=== PATIENT | female | born 1985 | race Hispanic/Latino ===

== ENCOUNTER 2020-09-03 23:02 | Emergency (ER) | payer OTHER ==
[2020-09-03 23:30] LABS: BASOPHILS % (AUTO) 0.2 % (0.0-5.0); EOSINOPHILS % (AUTO) 0.5 % (0.0-8.0); HEMATOCRIT 39.7 % (36-48); LYMPHOCYTES % (AUTO) 41.7 % (21.0-51.0); MEAN CORPUSCULAR HEMOGLOBIN 26.7 pg (27.0-33.0); MEAN CORPUSCULAR HGB CONC 30.5 g/dL (32.0-36.0); MEAN CORPUSCULAR VOLUME 87.6 fL (79-99); NEUTROPHILS % (AUTO) 52.3 % (40.0-77.0); PLATELET COUNT (AUTO) 362 K/uL (130-400); RED BLOOD CELL COUNT(AUTO) 4.53 MIL/uL (4.00-5.50); RED CELL DISTRIBUTION WIDTH 13.8 % (11.0-15.5); WHITE BLOOD COUNT (AUTO) 16.2 K/uL (4.8-10.8)
[2020-09-03 23:33] LABS: APPEARANCE,URINE Clear (CLEAR); BILIRUBIN,URINE Negative (NEGATIVE); COLOR,URINE Yellow (YELLOW); GLUCOSE, URINE (UA) Negative (NEGATIVE); KETONES,URINE Negative (NEGATIVE); LEUKOCYTE ESTERASE ,URINE Negative (NEGATIVE); NITRATE,URINE Negative (NEGATIVE); OCCULT BLOOD,URINE Negative (NEGATIVE); PROTEIN,URINE Negative (NEGATIVE); UROBILINOGEN,URINE 0.2 mg/dL (0.2-1.0)
[2020-09-03 23:35] LABS: CREATININE 0.6 mg/dL (0.5-1.5); POTASSIUM 3.6 mmol/L (3.5-5.1)
[2020-09-03 23:46] LABS: ALBUMIN 3.7 g/dL (3.5-5.0); BILIRUBIN,TOTAL 0.3 mg/dL (0.2-1.0); TOTAL PROTEIN, SERUM 7.9 g/dL (6.0-8.3)
[2020-09-04] MEDS ORDERED: ONDANSETRON HCL 4 MG/2 ML VIAL ONE (00:06)
[2020-09-04] MEDS ORDERED: KETOROLAC TROMETHAMINE 30MG/ML ONE (00:06)
== END 2020-09-04 02:11 | disposition home or self-care (01) ==
LOC: EDH 23:02
DX: R10.9 Unspecified abdominal pain (principal)
CPT/HCPCS: 36415; 74176; 80053; 81003; 83690; 84702; 85025; 96361; 96374; 96375; 99284; J1885; J2405

== ENCOUNTER 2020-10-18 01:48 | Emergency (ER) | payer SELFPAY ==
[2020-10-18] MEDS ORDERED: METOCLOPRAMIDE 10 MG/2 ML VIAL ONE (02:23)
[2020-10-18] MEDS ORDERED: ONDANSETRON HCL 4 MG/2 ML VIAL ONE (02:23)
[2020-10-18] MEDS ORDERED: PANTOPRAZOLE 40 MG/VIAL ONE (02:25)
[2020-10-18] MEDS ORDERED: FAMOTIDINE/PF 20 MG/2 ML VIAL IV ONE (02:25)
[2020-10-18 02:26] LABS: BASOPHILS % (AUTO) 0.3 % (0.0-5.0); EOSINOPHILS % (AUTO) 0.6 % (0.0-8.0); HEMATOCRIT 38.1 % (36-48); LYMPHOCYTES % (AUTO) 40.4 % (21.0-51.0); MEAN CORPUSCULAR HEMOGLOBIN 27.3 pg (27.0-33.0); MEAN CORPUSCULAR HGB CONC 31.8 g/dL (32.0-36.0); MEAN CORPUSCULAR VOLUME 85.8 fL (79-99); NEUTROPHILS % (AUTO) 53.5 % (40.0-77.0); PLATELET COUNT (AUTO) 343 K/uL (130-400); RED BLOOD CELL COUNT(AUTO) 4.44 MIL/uL (4.00-5.50); RED CELL DISTRIBUTION WIDTH 13.6 % (11.0-15.5); WHITE BLOOD COUNT (AUTO) 11.1 K/uL (4.8-10.8)
[2020-10-18] MEDS ORDERED: SODIUM CHLORIDE 0.9% 1000ML 1,000 ML IV ONE (02:26)
[2020-10-18 02:47] LABS: CREATININE 0.6 mg/dL (0.5-1.5); POTASSIUM 3.7 mmol/L (3.5-5.1)
[2020-10-18 02:51] LABS: ALBUMIN 3.8 g/dL (3.5-5.0); BILIRUBIN,TOTAL 0.4 mg/dL (0.2-1.0); TOTAL PROTEIN, SERUM 8.3 g/dL (6.0-8.3)
[2020-10-18 04:13] LABS: APPEARANCE,URINE Clear (CLEAR); BILIRUBIN,URINE Negative (NEGATIVE); COLOR,URINE Yellow (YELLOW); GLUCOSE, URINE (UA) Negative (NEGATIVE); KETONES,URINE Negative (NEGATIVE); LEUKOCYTE ESTERASE ,URINE Negative (NEGATIVE); NITRATE,URINE Negative (NEGATIVE); OCCULT BLOOD,URINE Negative (NEGATIVE); PH,URINE 6.5 (5.0-8.0); PROTEIN,URINE Negative (NEGATIVE); UROBILINOGEN,URINE 0.2 mg/dL (0.2-1.0)
== END 2020-10-18 04:46 | disposition home or self-care (01) ==
LOC: EDH 01:48
DX: K29.00 Acute gastritis without bleeding (principal)
CPT/HCPCS: 36415; 80053; 81003; 83690; 85025; 96361; 96374; 96375; 99284; C9113; J2405; J2765; J3490; J7030

== ENCOUNTER 2024-05-22 10:58 | Emergency (ER) | payer OTHER ==
[~2024-05-22] VITALS: Ht 152.4 cm; Wt 72.6 kg
[2024-05-22 11:19] VITALS: BP 116/77; PULSE 85; RESP 17; O2SAT 97
[2024-05-22] MEDS: KETOROLAC 15MG/ML VIAL (15MG/ML) IV ONE (12:24)
[2024-05-22] MEDS ORDERED: KETO10TA2 PO (12:29)
== END 2024-05-22 12:39 | disposition home or self-care (01) ==
LOC: EDH 10:58
DX: S90.32XA Contusion of left foot, initial encounter (principal); S20.20XA Contusion of thorax, unspecified, initial encounter; E78.00 Pure hypercholesterolemia, unspecified; W18.39XA Other fall on same level, initial encounter; Y93.89 Activity, other specified; Y92.89 Other specified places as the place of occurrence of the external cause; Y99.8 Other external cause status
CPT/HCPCS: 99284; 96374; 71045; 81025; 73660; J1885

== ENCOUNTER 2024-10-27 10:14 | Emergency (ER) | payer SELFPAY ==
[~2024-10-27] VITALS: Ht 162.6 cm; Wt 63.5 kg
[~2024-10-27 10:14] MED LIST: KETO10TA2 PO
--- NOTE | 2024-10-27 11:08 | ERN ---
General Chief Complaint: Abdominal Pain Stated Complaint: ABDOMINAL PAIN Time Seen by MD: 10:18 Source: patient, family History of Present Illness Initial Comments Patient is a 39-year-old female coming in to be evaluated for abdominal pain. Patient states that the pain began two weeks ago she has been evaluated by PCP and emergency room and was diagnosed with gastritis. Patient was pending H pylori test. But patient states that she decided to come in due to increasing right upper quadrant pain. Allergies: Coded Allergies: No Known Drug Allergies (Unverified Allergy, Unknown, 05/22/24) Home Meds Active Scripts Ketorolac Tromethamine (Ketorolac Tromethamine) 10 Mg Tablet, 10 MG PO BID for 5 Days, #10 TAB Prov:SCOTT BLANC 05/22/24 Past Medical History Past Medical History: High Cholesterol Past Surgical History: None Female( History) : 0 Para: 0 Aborts: 0 ROS Dictation CONSTITUTIONAL: No chills, no fever, no weakness, no diaphoresis, no malaise. HEAD/FACE: No signs of trauma. EENT: No eye pain, no blurred vision, no tearing, no double vision, no ear pain, no ear discharge, no nose pain, no nasal congestion, no throat pain, no throat swelling, no mouth pain. RESPIRATORY: No cough, no orthopnea, no SOB, no stridor, no wheezing. CARDIOVASCULAR: No chest pain, no edema, no palpitations, no syncope. GASTROINTESTINAL/ABDOMINAL: No abdominal pain, no constipation, no diarrhea, no nausea, no vomiting. GENITOURINARY: No abnormal discharge, no dysuria, no frequent urination, no hematuria. No complaints of pain in the genitals. MUSCULOSKELETAL: No back pain, no gout, no joint pain, no joint swelling, no muscle pain, no muscle stiffness, no neck pain. INTEGUMENTARY: No change in color, no change in hair/nails, no dryness, no lesion, no lumps, no rash. NEUROLOGICAL/PSYCH: No anxiety, not depressed, no emotional problem, no headache, no numbness, no pre-existing deficit, no history of seizures, no tremors, no weakness. HEMATOLOGIC/LYMPHATIC: Not anemic, no history of blood clots, no apparent bleeding, no bruising, glands not swollen. All Systems Negative, Except as Noted. Physical Exam Physical Exam Dictation VITAL SIGNS: Reviewed. GENERAL APPEARANCE: Alert, oriented x3, no acute distress, obese. HEAD AND FACE: Non-traumatic. EYES: PERRL, pink conjunctivas, eyelid no trauma, anterior chamber clear. EARS: Pinnas intact and no signs of trauma or erythema. Ear canals clear and no discharge. TMs no erythema. NOSE: No discharge, no bleeding. OROPHARYNX: Mouth normal, teeth no caries, tongue pink. Pharynx clear, no erythema. Tonsils no exudates, no abscesses noted. Mucous membrane moist. NECK: Supple, non-tender, no thyromegaly, no masses, no JVD, no bruits. BREAST: Deferred. CHEST: No tenderness, no crepitus, no paradoxical movement, no retractions. LUNGS: Clear, well-ventilated, symmetric, no rales, no wheezing, no rhonchi, no stridor, good breath sounds bilaterally. HEART: Regular rate, regular rhythm, no murmur, no gallops. VASCULAR: No peripheral edema. ABDOMEN: Soft, positive bowel sounds, nondistended, no guarding, right upper quadrant tender, no rebound, no masses no hepatomegaly, no splenomegaly, no Campbell's sign, no hernias. RECTAL: Deferred. GENITAL: Deferred. NEUROLOGICAL: Normal speech, gross motor function intact, gross sensory function intact. MUSCULOSKELETAL: Neck nontender, full range of motion, back nontender, full range of motion. EXTREMITIES: Nontender, full range of motion. SKIN: Color pink, dry, no turgor, no rash, no lacerations, no abrasions, no contusions. LYMPHATICS: Deferred. Results Laboratory and Microbiology Lab and Micro Result Laboratory Tests Test 10/27/24 11:13 White Blood Count 11.0 K/uL (4.8-10.8) H Red Blood Count 4.71 MIL/uL (4.00-5.50) Hemoglobin 13.5 g/dL (12.0-16.0) Hematocrit 42.0 % (36-48) Mean Corpuscular Volume 89.2 fL (79-99) Mean Corpuscular Hemoglobin 28.7 pg (27.0-33.0) Mean Corpuscular Hemoglobin Concent 32.1 g/dL (32.0-36.0) Red Cell Distribution Width 13.0 % (11.0-15.5) Platelet Count 350 K/uL (130-400) Mean Platelet Volume 9.8 fL (7.5-10.5) Immature Granulocyte % (Auto) 0.3 % (0-1) Neutrophils (%) (Auto) 53.0 % (40.0-77.0) Lymphocytes (%) (Auto) 37.2 % (21.0-51.0) Monocytes (%) (Auto) 3.2 % (3.0-13.0) Eosinophils (%) (Auto) 6.0 % (0.0-8.0) Basophils (%) (Auto) 0.3 % (0.0-5.0) Neutrophils # (Auto) 5.8 K/uL (1.8-7.7) Lymphocytes # (Auto) 4.1 K/uL (1.0-4.8) Monocytes # (Auto) 0.4 K/uL (0.1-1.0) Eosinophils # (Auto) 0.66 K/uL (0.00-0.70) Basophils # (Auto) 0.03 K/uL (0.00-0.20) Absolute Immature Granulocyte (auto 0.03 K/uL (0-1) Nucleated Red Blood Cells 0.0 % (0.0-0.19) Urine Color COLORLESS (YELLOW) Urine Appearance CLEAR (CLEAR) Urine pH 6.5 (5.0-8.0) Urine Specific [place] 1.007 (1.001-1.031) Urine Protein NEGATIVE mg/dL (NEGATIVE) Urine Glucose (UA) NEGATIVE mg/dL (NEGATIVE) Urine Ketones NEGATIVE mg/dL (NEGATIVE) Urine Occult Blood NEGATIVE (NEGATIVE) Urine Nitrate NEGATIVE (NEGATIVE) Urine Bilirubin NEGATIVE mg/dL (NEGATIVE) Urine Urobilinogen 0.2 mg/dL (0.2-1.0) Urine Leukocyte Esterase NEGATIVE Daniela/uL Sodium Level 142 mmol/L (136-145) Potassium Level 3.9 mmol/L (3.5-5.1) Chloride Level 103 mmol/L (101-111) Carbon Dioxide Level 30 mmol/L (21-32) Blood Urea Nitrogen 6 mg/dL (7-18) L Creatinine 0.5 mg/dL (0.5-1.0) Glomerular Filtration Rate Calc 122 mL/min (>90) Random Glucose 100 mg/dL (70-105) Total Calcium 8.9 mg/dL (8.5-10.1) Total Bilirubin 0.3 mg/dL (0.2-1.0) Aspartate Amino Transf (AST/SGOT) 13 U/L (10-37) Alanine Aminotransferase (ALT/SGPT) 26 U/L (12-78) Alkaline Phosphatase 82 U/L (50-136) Total Creatine Kinase 51 U/L (21-232) Troponin I High Sensitivity 14 ng/L (4-50) Total Protein 8.2 g/dL (6.0-8.3) Albumin 3.8 g/dL (3.5-5.0) Lipase 30 U/L (16-77) Human Chorionic Gonadotropin, Quant 0 mIU/mL (0-5) Labs Reviewed?: Yes MDM MDM: DIFFERENTIAL DIAGNOSIS: GASTRITIS, GERD, PATIENT IS A 39-YEAR-OLD FEMALE COMING IN TO BE EVALUATED FOR RIGHT UPPER QUADRANT PAIN. PATIENT HAS HAD HAVE HISTORY OF GASTRITIS FREQUENTLY PRESENTS WITH A FLARE-UP PATIENT WAS PENDING AN H PYLORI EXAM BY. LABORATORY WORKUP AND ULTRASOUND NEGATIVE FOR ACUTE FINDINGS. PATIENT WILL BE DISCHARGED WITH A DIAGNOSIS OF GASTRITIS. ED Course Orders Procedure Category Date Status Time Cbc With Differential LAB 10/27/24 Complete 11:05 Comprehensive LAB 10/27/24 Complete Metabolic Panel 11:05 Troponin I High LAB 10/27/24 Complete Sensitivity 11:05 Hcg,Quantitative LAB 10/27/24 Complete 11:05 Urinalysis Profile LAB 10/27/24 Complete 11:05 Us Abdominal Ruq\Ltd US 10/27/24 Resulted 11:05 12 Lead Ekg Tracing- EKG 10/27/24 Logged Technical 11:05 0.9%Nacl 1000ml (Ns PHA 10/27/24 Complete 1000ml) 11:30 Ondansetron 4mg Inj PHA 10/27/24 Complete (Zofran 4mg Inj) 11:30 Pantoprazole 40mg Inj PHA 10/27/24 Complete (Protonix 40mg Inj 11:30 Creatine Kinase, Total LAB 10/27/24 Complete 11:05 Lipase LAB 10/27/24 Complete 11:05 Current Medications Medications (Trade) Dose Ordered Sig/Kishore Route PRN Reason Start Time Stop Time Status Last Admin Dose Admin Ondansetron HCl (zoFRAN 4MG INJ) 4 mg ONCE ONCE IVP 10/27/24 11:30 10/27/24 11:31 DC Pantoprazole Sodium (PROTonix 40MG INJ) 40 mg ONCE ONCE IVP 10/27/24 11:30 10/27/24 11:31 DC Sodium Chloride 1,000 ml @ 0 mls/hr ONCE ONCE IV 10/27/24 11:30 10/27/24 11:31 DC Vital Signs Date Time Temp Pulse Resp B/P (MAP) Pulse Ox O2 Delivery O2 Flow Rate FiO2 10/27/24 11:41 99.0 80 20 136/81 99 Room Air 0 DX & DISP Disposition: Discharge Departure Impression: Primary Impression: Chronic gastritis Condition: Stable Additional Instructions: FOLLOW-UP WITH PRIMARY CARE PROVIDER IN 1 TO 2 DAYS. TAKE MEDICATIONS DIRECTED HERE IN THE EMERGENCY ROOM. OKAY TO CONTINUE HOME MEDICATIONS UNLESS OTHERWISE DISCUSSED DURING YOUR VISIT IN THE EMERGENCY ROOM TODAY. RETURN TO YOUR NEAREST EMERGENCY ROOM IF SYMPTOMS WORSEN OR IF THERE IS NO IMPROVEMENT. CALL 911 IF YOU NEED IMMEDIATE ASSISTANCE. TAKE TYLENOL [id number] NEEDED AND IF NO CONTRAINDICATIONS ARE PRESENT. INCREASE ORAL HYDRATION. A WOUND CULTURE OR URINE CULTURE WAS ORDERED HERE IN THE EMERGENCY ROOM DEPARTMENT PLEASE FOLLOW-UP WITH PRIMARY CARE PROVIDER AND ADVISE THEM TO GET REPEAT PORTS FROM OUR FACILITY. IF YOU HAD ANY MAGDA WRAP/SPLINTS THAT WERE APPLIED HERE, PLEASE DO NOT REMOVE THEM UNTIL YOU SEE YOUR PRIMARY CARE OR SPECIALTY. REFERRALS: Referrals: KRISTEN DE OLIVEIRA MD (PCP) Time of Disposition: 12:07 ELSA ROSARIO MD Oct 27, 2024 11:08
[2024-10-27 11:22] LABS: BASOPHILS # (AUTO) 0.03 K/uL (0.00-0.20); BASOPHILS % (AUTO) 0.3 % (0.0-5.0); EOSINOPHILS # (AUTO) 0.66 K/uL (0.00-0.70); IMMATURE GRANULOCYTE ABSOLUTE 0.03 K/uL (0-1); LYMPHOCYTES # (AUTO) 4.1 K/uL (1.0-4.8); LYMPHOCYTES % (AUTO) 37.2 % (21.0-51.0); MEAN CORPUSCULAR HEMOGLOBIN 28.7 pg (27.0-33.0); MEAN CORPUSCULAR HGB CONC 32.1 g/dL (32.0-36.0); MEAN CORPUSCULAR VOLUME 89.2 fL (79-99); MONOCYTES # (AUTO) 0.4 K/uL (0.1-1.0); MONOCYTES % (AUTO) 3.2 % (3.0-13.0); NEUTROPHILS # (AUTO) 5.8 K/uL (1.8-7.7); PLATELET COUNT (AUTO) 350 K/uL (130-400); RED BLOOD CELL COUNT(AUTO) 4.71 MIL/uL (4.00-5.50)
[2024-10-27 11:31] LABS: CREATININE 0.5 mg/dL (0.5-1.0); POTASSIUM 3.9 mmol/L (3.5-5.1)
[2024-10-27 11:41] LABS: APPEARANCE,URINE CLEAR (CLEAR); BILIRUBIN,URINE NEGATIVE (NEGATIVE); COLOR,URINE COLORLESS (YELLOW); GLUCOSE, URINE (UA) NEGATIVE (NEGATIVE); KETONES,URINE NEGATIVE (NEGATIVE); LEUKOCYTE ESTERASE ,URINE NEGATIVE Leu/uL (NEGATIVE); NITRATE,URINE NEGATIVE (NEGATIVE); OCCULT BLOOD,URINE NEGATIVE (NEGATIVE); PH,URINE 6.5 (5.0-8.0); PROTEIN,URINE NEGATIVE (NEGATIVE); UROBILINOGEN,URINE 0.2 mg/dL (0.2-1.0)
--- NOTE | 2024-10-27 11:47 | HMCIMG ---
Exam Type: US ABDOMINAL RUQ\E\LTD Clinical Information: Adominal Pain Comparison: None Findings: The liver shows normal echogenicity and is otherwise unremarkable. The liver measures less than 16 cm in length. Doppler evaluation shows patent portal and hepatic veins. The gallbladder shows no significant abnormalities. Specifically, no calculi are seen. The gallbladder wall thickness is 2 mm. No bile duct dilatation is noted. The common bile duct measures 4 mm. The right kidney measures 11 x 5.7 cm. The right kidney is normal in size and echogenicity. No hydronephrosis or renal calculi are seen. There are no renal masses. The pancreas is suboptimally visualized. IMPRESSION: Normal right upper quadrant abdominal ultrasound.
[2024-10-27 11:48] LABS: ADD UA MICROSCOPIC NO
[2024-10-27 11:50] LABS: ALBUMIN 3.8 g/dL (3.5-5.0); BILIRUBIN,TOTAL 0.3 mg/dL (0.2-1.0); TOTAL PROTEIN, SERUM 8.2 g/dL (6.0-8.3)
[2024-10-27] MEDS: ondanSETRON 4MG INJ IVP ONE (12:57)
[2024-10-27] MEDS: 0.9%NACL 1000ML 1,000 ML IV ONE (12:57)
[2024-10-27] MEDS: PANTOPrazole 40 MG/VIAL IVP ONE (12:57)
[2024-10-27 13:55] VITALS: BP 128/85; PULSE 72; RESP 18; TEMP 98.7; O2SAT 99
--- NOTE | 2024-10-27 14:48 | EKG ---
[facility] Test Date: 2024-10-27 Test Time: 11:44:21 Pat Name: EULALIA COPELAND Department: ED Room: Gender: F Federal Judge: 07 : 1985 Requested By: ELSA ROSARIO Order Number: [id number] Reading MD: Jj Kwok Measurements Intervals [place] Rate: 75 P: 0 RI: 138 QRS: 51 QRSD: 91 T: 23 QT: 386 QTc: 432 Interpretive Statements Sinus rhythm Nonspecific STT abnormality No previous ECG available for comparison Electronically Signed On 10-27-2024 22:10:21 SKIN CARE INSTRUCTOR by Jj Kwok Please click the below link to view image of tracing.
== END 2024-10-27 13:57 | disposition home or self-care (01) ==
LOC: EDH 10:14
DX: K29.50 Unspecified chronic gastritis without bleeding (principal); R10.2 Pelvic and perineal pain; E78.00 Pure hypercholesterolemia, unspecified; Z79.899 Other long term (current) drug therapy
CPT/HCPCS: 99285; 96374; 76705; 96361; 96375; 82550; 84484; 80053; 84702; 83690; 85025; 81003; 36415; 93005; J7030; J2405; J2470

== ENCOUNTER 2025-08-01 21:46 | Emergency (ER) | payer SELFPAY ==
[~2025-08-01] VITALS: Ht 157.5 cm; Wt 71.2 kg
[2025-08-01] MEDS: DICYCLOMINE HCL 10 MG/5 ML ML PO ONE (22:23)
[2025-08-01] MEDS: MAG/ALUM/SIMETH 30 ML UDCUP PO ONE (22:23)
[2025-08-01] MEDS: LIDOCAINE HCL 2% VISCOUS 15 ML UDCUP PO ONE (22:23)
[2025-08-01 22:37] LABS: IMMATURE GRANULOCYTE ABSOLUTE 0.04 K/uL (0-1); NUCLEATED RED BLOOD CELLS 0.0 % (0.0-0.19); PLATELET COUNT (AUTO) 335 K/uL (130-400); RED BLOOD CELL COUNT(AUTO) 4.28 MIL/uL (4.00-5.50); RED CELL DISTRIBUTION WIDTH 12.8 % (11.0-15.5); WHITE BLOOD COUNT (AUTO) 15.2 K/uL (4.8-10.8)
[2025-08-01 22:40] LABS: APPEARANCE,URINE CLEAR (CLEAR); GLUCOSE, URINE (UA) NEGATIVE (NEGATIVE); LEUKOCYTE ESTERASE ,URINE NEGATIVE Leu/uL (NEGATIVE); NITRATE,URINE NEGATIVE (NEGATIVE); OCCULT BLOOD,URINE NEGATIVE (NEGATIVE)
[2025-08-01 22:44] LABS: HCG,QUALITATIVE URINE NEGATIVE (NEGATIVE)
[2025-08-01 22:45] LABS: ADD UA MICROSCOPIC NO
[2025-08-01 22:51] LABS: ASPARTATE AMINOTRANSFERASE 13.0 U/L (10-37); CREATINE KINASE, TOTAL 56.0 U/L (21-232); CREATININE 0.6 mg/dL (0.5-1.0); GLOMERULAR FILTR. RATE CALC 117.0 mL/min (>90); GLUCOSE,RANDOM 109.0 mg/dL (70-105); SODIUM SERUM 143.0 mmol/L (136-145); TOTAL PROTEIN, SERUM 7.9 g/dL (6.0-8.3); UREA NITROGEN, BLOOD 6.0 mg/dL (7-18)
--- NOTE | 2025-08-01 22:57 | HMCIMG ---
EXAM: US Abdomen, Right Upper Quadrant. CLINICAL HISTORY: Patient presents with abdominal pain. TECHNIQUE: Right upper quadrant sonography performed with image documentation. COMPARISON: Compared to prior ultrasound dated October 27, 2024. FINDINGS: LIVER: The liver measures 14.2 cm. Echotexture is within normal limits. No focal hepatic lesion. GALLBLADDER: The gallbladder wall thickness is 2 mm. No gallstones. No pericholecystic fluid. COMMON BILE DUCT: The common bile duct measures 3 mm. Within normal limits. PANCREAS: The pancreatic head and body are within normal limits. The pancreatic tail is obscured by bowel gas. RIGHT KIDNEY: The right kidney measures 10.6 x 4.3 x 4.8 cm. Normal renal cortical thickness and echogenicity. No renal calculus, mass, or hydronephrosis. IMPRESSION: Normal liver, gallbladder, and common bile duct. Normal pancreatic head and body with obscuration of the tail by bowel gas. Normal right kidney. /[place]
[2025-08-01 23:15] LABS: AMPHET/METH SCREEN,URINE NEGATIVE (NEGATIVE); BARBITURATE SCREEN, URINE NEGATIVE (NEGATIVE); CANNABINOID SCREEN,URINE NEGATIVE (NEGATIVE); COCAINE SCREEN,URINE NEGATIVE (NEGATIVE)
[2025-08-01] MEDS ORDERED: IOHEXOL 350 MG/ML 100ML INFUS..BTL IV ONE (23:22)
--- NOTE | 2025-08-01 23:36 | EKG ---
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
--- NOTE | 2025-08-02 00:17 | ERN ---
ED Note History of Present Illness Stated Complaint: C/O ABD PAIN WITH BURNING Chief Complaint: Abdominal Pain Time Seen by MD: 21:51 Time Seen by Midlevel: 21:51 Dictation: The patient is a 39-year-old female with a history of H pylori, IBS who presents to the emergency department with complaints of two weeks of epigastric, right upper quadrant abdominal pain associated with nausea nonbloody vomiting. Patient denies any fevers, denies any diarrhea or constipation. Patient reports she was seen by her doctor in diagnosed her with gastritis and started her on pantoprazole but reports no relief. Allergies: Coded Allergies: No Known Drug Allergies (Unverified Allergy, Unknown, 05/22/24) Home Meds Active Scripts Ketorolac Tromethamine (Ketorolac Tromethamine) 10 Mg Tablet, 10 MG PO BID for 5 Days, #10 TAB Prov:SCOTT BLANC 05/22/24 Past Medical History Past Medical History: Other Additional Past Medical Hx: GASTRITIS Surgical History: None : 0 Para: 0 Aborts: 0 RN Note Reviewed/Agreed w/PFSH: Yes Review of System Dictation Constitutional: Negative for fever,chills, and weight loss Eyes: Negative for injury, pain,redness, and discharge ENT: Negative for injury,pain or swelling Cardiovascular: Negative for chest pain, palpitations, and edema Respiratory: Negative for shortness of breath, cough, and wheezing, Abdomen/GI: Negative for diarrhea, and constipation positive for abdominal pain, nausea, vomiting Back: Negative for injury and pain : Negative for injury, bleeding and discharge MS/Extremity: Negative for injury and deformity Skin: Negative for rash, and discoloration Neuro: Negative for headache, weakness, numbness, tingling, and seizure Psych: Negative for suicide ideation, homicidal ideation, and hallucinations Initial Vital Sign VS Vital Signs Date Time Temp Pulse Resp B/P (MAP) Pulse Ox O2 Delivery O2 Flow Rate FiO2 08/01/25 21:48 98.1 77 20 147/81 99 Room Air 08/01/25 22:14 0 21 Physical Exam Dictation Vital Signs reviewed General Appearance: Alert, oriented x 3, no acute distress, well developed, nourished. Head and Face: non-traumatic. Eyes: PERRL, pink conjunctivas, eyelid no trauma, anterior chamber with arcus senilis. Ears: Pinnas intact and no signs of trauma or erythema ear canals clear and no discharge TM no erythema Nose: No discharge, no bleeding. Oropharynx: Mouth normal, tongue pink. pharynx clear,no erythema, tonsils no exudates, no abscesses noted, mucous membrane moist Neck: Supple, non-tender, no thyromegaly, no masses, no JVD, no bruits Breast:Deferred Chest:No tenderness, no crepitus, no paradoxical movement, no retractions Lungs:Clear, well-ventilated, symmetric, no rales, no wheezing, no rhonchi, no stridor, good breath sounds bilaterally Heart: Regular rate, regular rhythm, no murmur, no gallops Vascular: no peripheral edema, Abdomen: Soft, positive bowel sounds, nondistended, no guarding, nontender, no rebound, no masses no hepatomegaly, no splenomegaly, no Campbell's sign, no hernias. Rectal: Deferred Genital: Deferred Neurological: Normal speech, motor function intact, sensory function intact Musculoskeletal: Neck nontender, full range of motion, back nontender, full range of motion, Extremities: nontender, full range of motion Skin: Color pink, dry, no turgor, no rash, no lacerations, no abrasions, no contusions. Lymphatic: Deferred Results (Laboratory/Radiology) Laboratory/Radiology Laboratory Tests Test 08/01/25 22:24 08/01/25 22:28 Urine Color COLORLESS (YELLOW) Urine Appearance CLEAR (CLEAR) Urine pH 7.0 (5.0-8.0) Urine Specific [place] 1.002 (1.001-1.031) Urine Protein NEGATIVE mg/dL (NEGATIVE) Urine Glucose (UA) NEGATIVE mg/dL (NEGATIVE) Urine Ketones NEGATIVE mg/dL (NEGATIVE) Urine Occult Blood NEGATIVE (NEGATIVE) Urine Nitrate NEGATIVE (NEGATIVE) Urine Bilirubin NEGATIVE mg/dL (NEGATIVE) Urine Urobilinogen 0.2 mg/dL (0.2-1.0) Urine Leukocyte Esterase NEGATIVE Daniela/uL Urine HCG, Qualitative NEGATIVE (NEGATIVE) Urine Opiates Screen NEGATIVE (NEGATIVE) Urine Barbiturates Screen NEGATIVE (NEGATIVE) Urine Phencyclidine Screen NEGATIVE (NEGATIVE) Urine Amphetamines Screen NEGATIVE (NEGATIVE) Urine Benzodiazepines Screen NEGATIVE (NEGATIVE) Urine Cocaine Screen NEGATIVE (NEGATIVE) Urine Marijuana (THC) Screen NEGATIVE (NEGATIVE) White Blood Count 15.2 K/uL (4.8-10.8) H Red Blood Count 4.28 MIL/uL (4.00-5.50) Hemoglobin 12.2 g/dL (12.0-16.0) Hematocrit 38.8 % (36-48) Mean Corpuscular Volume 90.7 fL (79-99) Mean Corpuscular Hemoglobin 28.5 pg (27.0-33.0) Mean Corpuscular Hemoglobin Concent 31.4 g/dL (32.0-36.0) L Red Cell Distribution Width 12.8 % (11.0-15.5) Platelet Count 335 K/uL (130-400) Mean Platelet Volume 9.7 fL (7.5-10.5) Immature Granulocyte % (Auto) 0.3 % (0-1) Neutrophils (%) (Auto) 57.7 % (40.0-77.0) Lymphocytes (%) (Auto) 35.9 % (21.0-51.0) Monocytes (%) (Auto) 5.3 % (3.0-13.0) Eosinophils (%) (Auto) 0.6 % (0.0-8.0) Basophils (%) (Auto) 0.2 % (0.0-5.0) Neutrophils # (Auto) 8.8 K/uL (1.8-7.7) H Lymphocytes # (Auto) 5.5 K/uL (1.0-4.8) H Monocytes # (Auto) 0.8 K/uL (0.1-1.0) Eosinophils # (Auto) 0.09 K/uL (0.00-0.70) Basophils # (Auto) 0.03 K/uL (0.00-0.20) Absolute Immature Granulocyte (auto 0.04 K/uL (0-1) Nucleated Red Blood Cells 0.0 % (0.0-0.19) Sodium Level 143 mmol/L (136-145) Potassium Level 3.8 mmol/L (3.5-5.1) Chloride Level 103 mmol/L (101-111) Carbon Dioxide Level 31 mmol/L (21-32) Blood Urea Nitrogen 6 mg/dL (7-18) L Creatinine 0.6 mg/dL (0.5-1.0) Glomerular Filtration Rate Calc 117 mL/min (>90) Random Glucose 109 mg/dL (70-105) H Total Calcium 8.9 mg/dL (8.5-10.1) Total Bilirubin 0.3 mg/dL (0.2-1.0) Direct Bilirubin 0.1 mg/dL (0.0-0.3) Aspartate Amino Transf (AST/SGOT) 13 U/L (10-37) Alanine Aminotransferase (ALT/SGPT) 25 U/L (12-78) Alkaline Phosphatase 68 U/L (50-136) Total Creatine Kinase 56 U/L (21-232) Troponin I High Sensitivity 9 ng/L (4-50) Total Protein 7.9 g/dL (6.0-8.3) Albumin 4.0 g/dL (3.5-5.0) Lipase 37 U/L (16-77) SERVICE 03 REASON: Adominal Pain ORDERING PHYSICIAN: MARBIN MEZA PROCEDURE: [id number] - US ABDOMINAL RUQ\LTD EXAM: US Abdomen, Right Upper Quadrant. CLINICAL HISTORY: Patient presents with abdominal pain. TECHNIQUE: Right upper quadrant sonography performed with image documentation. COMPARISON: Compared to prior ultrasound dated October 27, 2024. FINDINGS: LIVER: The liver measures 14.2 cm. Echotexture is within normal limits. No focal hepatic lesion. GALLBLADDER: The gallbladder wall thickness is 2 mm. No gallstones. No pericholecystic fluid. COMMON BILE DUCT: The common bile duct measures 3 mm. Within normal limits. PANCREAS: The pancreatic head and body are within normal limits. The pancreatic tail is obscured by bowel gas. RIGHT KIDNEY: The right kidney measures 10.6 x 4.3 x 4.8 cm. Normal renal cortical thickness and echogenicity. No renal calculus, mass, or hydronephrosis. IMPRESSION: Normal liver, gallbladder, and common bile duct. Normal pancreatic head and body with obscuration of the tail by bowel gas. Normal right kidney. /[place] REASON: Abdominal Pain ORDERING PHYSICIAN: MARBIN MEZA PROCEDURE: ABD PEL W - CT ABDOMEN/PELVIS W/CONTRAST EXAM: CT Abdomen and Pelvis with IV contrast CLINICAL HISTORY: Abdominal pain. TECHNIQUE: Thin collimated axial CT images of the abdomen and pelvis were obtained, with sagittal and coronal reformatted images also submitted. A CT scan is done according to ALARA (As Low As Reasonably Achievable). CONTRAST: Omnipaque 350 COMPARISON: Prior CT abdomen and pelvis dated 09/03/2025. FINDINGS: Unremarkable visualized lung parenchyma. No focal abnormality within the liver, gallbladder, pancreas, spleen, adrenals, or kidneys. There is no obvious bowel wall thickening. Bowel loops are normal in caliber without evidence of obstruction or ileus. The appendix is normal. There is no abnormality within the urinary bladder. Unremarkable reproductive organs. Abdominal and pelvic vessels are patent. No lymphadenopathy. No free fluid. There is no acute osseous abnormality. IMPRESSIONS: No acute process in the abdomen or pelvis. No significant interval change. /[place] Labs Reviewed?: Yes EKG: (+) rhythm (Sinus rhythm) EKG Comment: Date:08/01/2025 Time:2211 Ventricular rate:77 CT interval:160 QRS duration:101 QT/QTc:397/451 EKG interpretation: Sinus rhythm Reviewed by ED Attending no STEMI ED Course ED Course Orders Procedure Category Date Status Time Cbc With Differential LAB 08/01/25 Complete 22:04 Troponin I High LAB 08/01/25 Complete Sensitivity 22:04 ,Urine Test LAB 08/01/25 Complete 22:04 Urinalysis Profile LAB 08/01/25 Complete 22:04 Us Abdominal Ruq\Ltd US 08/01/25 Resulted 22:04 12 Lead Ekg Tracing- EKG 08/01/25 Complete Technical 22:04 Lidocaine Hcl 2% PHA 08/01/25 Complete Viscous (Lidocaine Hcl 22:30 Mag/Alum/Simeth 30ml PHA 08/01/25 Complete (Maalox Plus 30ml) 22:30 Dicyclomine Hcl PHA 08/01/25 Complete (Bentyl 10mg/5ml 22:30 Creatine Kinase, Total LAB 08/01/25 Complete 22:04 Lipase LAB 08/01/25 Complete 22:04 Basic Metabolic Panel LAB 08/01/25 Complete 22:04 Hepatic Function Panel LAB 08/01/25 Complete 22:04 Drug Screen Urine LAB 08/01/25 Complete 22:59 0.9%Nacl 1000ml (Ns PHA 08/01/25 Complete 1000ml) 23:30 Ct Abdomen/Pelvis CT 08/01/25 Resulted W/Contrast 23:22 Iohexol (Omnipaque) PHA 08/02/25 Complete 00:36 Current Medications Medications (Trade) Dose Ordered Sig/Kishore Route PRN Reason Start Time Stop Time Status Last Admin Dose Admin Al Hydroxide/Mg Hydroxide (MAALox PLUS 30ML) 30 ml ONCE ONCE PO 08/01/25 22:30 08/01/25 22:31 DC 08/01/25 22:23 Dicyclomine HCl (Bentyl 10mg/5ml Syrup) 10 mg ONCE ONCE PO 08/01/25 22:30 08/01/25 22:31 DC 08/01/25 22:23 Iohexol (Omnipaque) 35,000 mg STK-MED ONCE IV 08/02/25 00:36 08/02/25 00:36 DC Lidocaine HCl (Lidocaine HCl 2% Viscous) 10 ml ONCE ONCE PO 08/01/25 22:30 08/01/25 22:31 DC 08/01/25 22:23 Sodium Chloride 1,000 ml @ 0 mls/hr ONCE ONCE IV 08/01/25 23:30 08/01/25 23:31 DC 08/02/25 00:30 Vital Signs Date Time Temp Pulse Resp B/P (MAP) Pulse Ox O2 Delivery O2 Flow Rate FiO2 08/01/25 22:14 98.1 77 20 147/81 99 Room Air* 0 21 08/01/25 21:48 98.1 77 20 147/81 99 Room Air Medical Decision Making MDM The patient is a 39-year-old female with a history of H pylori, IBS who presents to the emergency department with complaints of two weeks of epigastric , right upper abdominal pain associated with nausea nonbloody vomiting. Patient denies any fevers, denies any diarrhea or constipation. Patient reports she was seen by her doctor in diagnosed her with gastritis and started her on pantoprazole but reports no relief. CBC showed leukocytosis, no anemia, chemistry showed no electrolyte imbalance, normal renal function, negative troponin, negative lipase, urinalysis unremarkable. Ultrasound unremarkable.. CT abdomen showed no acute pathology. On physical exam patient is in no acute distress, stable vital signs. Patient will be discharged to follow up with PCP. Differential diagnosis: Gastritis, gastroenteritis, electrolyte imbalance, dehydration Need for hospitalization: Patient does not meet criteria for hospitalization. There are no social concerns with this patient. DX & DISP Disposition: Discharge Departure Impression: Primary Impression: Gastritis Additional Impression: Leukocytosis Condition: Stable Additional Instructions: Your imaging was unremarkable. Please follow up with the primary doctor in 1- 2 days. Avoid any foods that exacerbate your symptoms. FOLLOW-UP WITH PRIMARY CARE PROVIDER IN 1 TO 2 DAYS. TAKE MEDICATIONS DIRECTED HERE IN THE EMERGENCY ROOM. OKAY TO CONTINUE HOME MEDICATIONS UNLESS OTHERWISE DISCUSSED DURING YOUR VISIT IN THE EMERGENCY ROOM TODAY. RETURN TO YOUR NEAREST EMERGENCY ROOM IF SYMPTOMS WORSEN OR IF THERE IS NO IMPROVEMENT. CALL 911 IF YOU NEED IMMEDIATE ASSISTANCE. TAKE TYLENOL [id number] NEEDED AND IF NO CONTRAINDICATIONS ARE PRESENT. INCREASE ORAL HYDRATION. A WOUND CULTURE OR URINE CULTURE WAS ORDERED HERE IN THE EMERGENCY ROOM DEPARTMENT PLEASE FOLLOW-UP WITH PRIMARY CARE PROVIDER AND ADVISE THEM TO GET REPEAT PORTS FROM OUR FACILITY. IF YOU HAD ANY MAGDA WRAP/SPLINTS THAT WERE APPLIED HERE, PLEASE DO NOT REMOVE THEM UNTIL YOU SEE YOUR PRIMARY CARE OR SPECIALTY. Referrals: KRISTEN DE OLIVEIRA MD (PCP) Time of Disposition: 02:50 I have reviewed the case, and I agree with, Diagnosis and Plan MARBIN MEZA Aug 02, 2025 00:17
[2025-08-02] MEDS: 0.9%NACL 1000ML 1,000 ML IV ONE (00:30)
[2025-08-02] MEDS ORDERED: IOHEXOL 350 MG/ML 100ML INFUS..BTL IV ONE (00:36)
--- NOTE | 2025-08-02 02:45 | HMCIMG ---
EXAM: CT Abdomen and Pelvis with IV contrast CLINICAL HISTORY: Abdominal pain. TECHNIQUE: Thin collimated axial CT images of the abdomen and pelvis were obtained, with sagittal and coronal reformatted images also submitted. A CT scan is done according to ALARA (As Low As Reasonably Achievable). CONTRAST: Omnipaque 350 COMPARISON: Prior CT abdomen and pelvis dated 09/03/2025. FINDINGS: Unremarkable visualized lung parenchyma. No focal abnormality within the liver, gallbladder, pancreas, spleen, adrenals, or kidneys. There is no obvious bowel wall thickening. Bowel loops are normal in caliber without evidence of obstruction or ileus. The appendix is normal. There is no abnormality within the urinary bladder. Unremarkable reproductive organs. Abdominal and pelvic vessels are patent. No lymphadenopathy. No free fluid. There is no acute osseous abnormality. IMPRESSIONS: No acute process in the abdomen or pelvis. No significant interval change. /Conrad
[2025-08-02 02:55] VITALS: BP 140/75; PULSE 72; RESP 20; TEMP 98.2; O2SAT 99
== END 2025-08-02 02:58 | disposition home or self-care (01) ==
LOC: EDH 21:46
DX: K29.70 Gastritis, unspecified, without bleeding (principal); D72.829 Elevated white blood cell count, unspecified
CPT/HCPCS: 99285; 74177; 96360; 76705; 96361; 82550; 80076; 84484; 80048; 80305; 83690; 85025; 81025; 36415; 93005; 81003; J7030; Q9967

== ENCOUNTER 2025-08-05 07:45 | Emergency (ER) | payer SELFPAY ==
[2025-08-05 08:22] LABS: IMMATURE GRANULOCYTE ABSOLUTE 0.04 K/uL (0-1); NUCLEATED RED BLOOD CELLS 0.0 % (0.0-0.19); PLATELET COUNT (AUTO) 365 K/uL (130-400); RED BLOOD CELL COUNT(AUTO) 4.31 MIL/uL (4.00-5.50); RED CELL DISTRIBUTION WIDTH 12.9 % (11.0-15.5); WHITE BLOOD COUNT (AUTO) 13.5 K/uL (4.8-10.8)
[2025-08-05 08:31] LABS: APPEARANCE,URINE CLEAR (CLEAR); GLUCOSE, URINE (UA) NEGATIVE (NEGATIVE); LEUKOCYTE ESTERASE ,URINE NEGATIVE Leu/uL (NEGATIVE); NITRATE,URINE NEGATIVE (NEGATIVE); OCCULT BLOOD,URINE NEGATIVE (NEGATIVE)
[2025-08-05 08:35] LABS: ADD UA MICROSCOPIC NO
[2025-08-05 08:40] LABS: ASPARTATE AMINOTRANSFERASE 10.0 U/L (10-37); CREATININE 0.6 mg/dL (0.5-1.0); GLOMERULAR FILTR. RATE CALC 117.0 mL/min (>90); GLUCOSE,RANDOM 107.0 mg/dL (70-105); SODIUM SERUM 140.0 mmol/L (136-145); TOTAL PROTEIN, SERUM 8.2 g/dL (6.0-8.3); UREA NITROGEN, BLOOD 6.0 mg/dL (7-18)
[2025-08-05] MEDS ORDERED: OMEG100033 PO (08:56)
[2025-08-05] MEDS: 0.9%NACL 1000ML 1,000 ML IV ONE (09:27)
--- NOTE | 2025-08-05 10:07 | ERN ---
General Chief Complaint: Abdominal Pain Stated Complaint: ABDOMINAL PAIN Time Seen by MD: 08:35 History of Present Illness Initial Comments 39-year-old female history of H pylori who presents to emergency room with epigastric pain. States the pain started for the past two days. She says she has been treated with multiple antibiotics in the past for recent vaginal infection as well as H pylori. She has never had an EGD or been evaluated by GI in the past. Has nausea but no vomiting or diarrhea. Pain is localized to the epigastric region. No fever. No cough. No shortness a breath. No chest pain. Allergies: Coded Allergies: No Known Drug Allergies (Unverified Allergy, Unknown, 05/22/24) Home Meds Reported Medications [place]-3/Dha/Epa/Fish Oil (Fish Oil 1,000 mg Softgel) 1,000 Mg (120 Mg-180 Mg) Capsule, 1 CAP PO BID for 30 Days, #60 CAP 0 Refills 08/05/25 Discontinued Scripts Ketorolac Tromethamine (Ketorolac Tromethamine) 10 Mg Tablet, 10 MG PO BID for 5 Days, #10 TAB Prov:SCOTT BLANC 05/22/24 Past Medical History Past Medical History: Other Medical History Other: gastritis Past Surgical History: None Female( History) : 0 Para: 0 Aborts: 0 Gastrointestinal/Abdominal: (+) nausea, (+) abdominal pain Review of Systems: was completed, & the rest were negative. Physical Exam General Appearance: (+) no apparent distress Orientation: (+) alert, (+) oriented x 3 Gastrointestinal Comment Minimal tenderness in epigastric region Results Laboratory and Microbiology Lab and Micro Result Laboratory Tests Test 08/05/25 08:07 08/05/25 08:13 Urine Color COLORLESS (YELLOW) Urine Appearance CLEAR (CLEAR) Urine pH 8.0 (5.0-8.0) Urine Specific [place] 1.004 (1.001-1.031) Urine Protein NEGATIVE mg/dL (NEGATIVE) Urine Glucose (UA) NEGATIVE mg/dL (NEGATIVE) Urine Ketones NEGATIVE mg/dL (NEGATIVE) Urine Occult Blood NEGATIVE (NEGATIVE) Urine Nitrate NEGATIVE (NEGATIVE) Urine Bilirubin NEGATIVE mg/dL (NEGATIVE) Urine Urobilinogen 0.2 mg/dL (0.2-1.0) Urine Leukocyte Esterase NEGATIVE Daniela/uL White Blood Count 13.5 K/uL (4.8-10.8) H Red Blood Count 4.31 MIL/uL (4.00-5.50) Hemoglobin 12.3 g/dL (12.0-16.0) Hematocrit 38.5 % (36-48) Mean Corpuscular Volume 89.3 fL (79-99) Mean Corpuscular Hemoglobin 28.5 pg (27.0-33.0) Mean Corpuscular Hemoglobin Concent 31.9 g/dL (32.0-36.0) L Red Cell Distribution Width 12.9 % (11.0-15.5) Platelet Count 365 K/uL (130-400) Mean Platelet Volume 10.0 fL (7.5-10.5) Immature Granulocyte % (Auto) 0.3 % (0-1) Neutrophils (%) (Auto) 72.5 % (40.0-77.0) Lymphocytes (%) (Auto) 22.6 % (21.0-51.0) Monocytes (%) (Auto) 4.0 % (3.0-13.0) Eosinophils (%) (Auto) 0.5 % (0.0-8.0) Basophils (%) (Auto) 0.1 % (0.0-5.0) Neutrophils # (Auto) 9.8 K/uL (1.8-7.7) H Lymphocytes # (Auto) 3.1 K/uL (1.0-4.8) Monocytes # (Auto) 0.5 K/uL (0.1-1.0) Eosinophils # (Auto) 0.07 K/uL (0.00-0.70) Basophils # (Auto) 0.02 K/uL (0.00-0.20) Absolute Immature Granulocyte (auto 0.04 K/uL (0-1) Nucleated Red Blood Cells 0.0 % (0.0-0.19) Sodium Level 140 mmol/L (136-145) Potassium Level 4.0 mmol/L (3.5-5.1) Chloride Level 101 mmol/L (101-111) Carbon Dioxide Level 31 mmol/L (21-32) Blood Urea Nitrogen 6 mg/dL (7-18) L Creatinine 0.6 mg/dL (0.5-1.0) Glomerular Filtration Rate Calc 117 mL/min (>90) Random Glucose 107 mg/dL (70-105) H Total Calcium 9.6 mg/dL (8.5-10.1) Total Bilirubin 0.3 mg/dL (0.2-1.0) Direct Bilirubin 0.1 mg/dL (0.0-0.3) Aspartate Amino Transf (AST/SGOT) 10 U/L (10-37) Alanine Aminotransferase (ALT/SGPT) 24 U/L (12-78) Alkaline Phosphatase 63 U/L (50-136) Troponin I High Sensitivity 8 ng/L (4-50) Total Protein 8.2 g/dL (6.0-8.3) Albumin 3.7 g/dL (3.5-5.0) Lipase 33 U/L (16-77) MDM Labs reviewed with the patient. She feels much better after taking antinausea medication and1 L fluid. We will give her a dose of Bentyl prior to discharge home. Advised on concerning signs and symptoms for which to return to the emergency room. Patient to follow up with the PCP for H pylori testing and possible GI follow up. Patient states that she feels much better. We will discharge home at this time. ED Course Orders Procedure Category Date Status Time Cbc With Differential LAB 08/05/25 Complete 08:03 Basic Metabolic Panel LAB 08/05/25 Complete 08:03 Lipase LAB 08/05/25 Complete 08:03 Hepatic Function Panel LAB 08/05/25 Complete 08:03 Troponin I High LAB 08/05/25 Complete Sensitivity 08:03 12 Lead Ekg Tracing- EKG 08/05/25 Logged Technical 08:03 Urinalysis Profile LAB 08/05/25 Complete 08:03 0.9%Nacl 1000ml (Ns PHA 08/05/25 In Process 1000ml) 09:30 Ondansetron 4mg Inj PHA 08/05/25 Complete (Zofran 4mg Inj) 10:00 Dicyclomine Hcl PHA 08/05/25 Verified (Bentyl 20mg Inj) 11:00 Current Medications Medications (Trade) Dose Ordered Sig/Kishore Route PRN Reason Start Time Stop Time Status Last Admin Dose Admin Ondansetron HCl (zoFRAN 4MG INJ) 4 mg ONCE ONCE IVP 08/05/25 10:00 08/05/25 10:01 DC 08/05/25 10:02 Sodium Chloride 1,000 ml @ 125 mls/hr Q8H ONCE IV 08/05/25 09:30 08/05/25 17:29 08/05/25 09:27 Vital Signs Date Time Temp Pulse Resp B/P (MAP) Pulse Ox O2 Delivery O2 Flow Rate FiO2 08/05/25 08:28 98.4 78 18 123/78 Room Air* 0 21 08/05/25 07:50 97.5 77 16 125/66 99 Room Air* 0 21 08/05/25 07:46 97.5 77 16 125/66 99 Room Air 0 DX & DISP Disposition: Discharge Departure Impression: Primary Impression: Gastritis Additional Impression: Abdominal pain Condition: Stable Scripts Dicyclomine HCl (Bentyl) 10 Mg Cap 1 CAP PO TID for irritable bowel symptoms for 30 Days, #90 CAP 0 Refills Prov: KAYY BUNCH MD 08/05/25 Ondansetron (Ondansetron Odt) 4 Mg Tab.rapdis 1 TAB PO Q6HPRN PRN for nausea/vomiting for 4 Days, #16 TAB 0 Refills Prov: KAYY BUNCH MD 08/05/25 Referrals: KRISTEN DE OLIVEIRA MD (PCP) KAYY BUNCH MD Aug 05, 2025 10:07
[2025-08-05] MEDS ORDERED: ONDA-243 PO (10:52)
[2025-08-05] MEDS ORDERED: DICY10 PO (10:52)
[2025-08-05 11:08] VITALS: BP 127/72; PULSE 72; RESP 18; TEMP 98.4; O2SAT 99
[2025-08-05] MEDS: DICYCLOMINE 20MG (10MG/ML) AMP IM ONE (11:17)
--- NOTE | 2025-08-05 12:04 | EKG ---
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
== END 2025-08-05 11:20 | disposition home or self-care (01) ==
LOC: EDH 07:45
DX: K29.70 Gastritis, unspecified, without bleeding (principal); Z79.899 Other long term (current) drug therapy; Z87.19 Personal history of other diseases of the digestive system
CPT/HCPCS: 99284; 96374; 96361; 80076; 84484; 80048; 83690; 85025; 81003; 36415; 93005; 96372; J7030; J2405; J0500